=== PATIENT | female | born 1940 | race Caucasian/White ===

== ENCOUNTER → 2017-05-28 14:54 | Outpatient (CLI) | payer MEDICARE, OTHER, SELFPAY ==
[2017-05-28 16:21] LABS: Hemoglobin A1c 7.4 % (4.2-6.3)
[2017-05-28 16:27] LABS: Anion Gap 5 (5-15); BUN 55 mg/dL (7-18); Calcium,Total 9.1 mg/dL (8.5-10.1); Chloride 107 mmol/L (98-107); Creatinine, Serum 1.25 mg/dL (0.55-1.02); EST Glomerular Filtration Rate 44 mL/min (>60); Est Glom Filt Rate - Afr Amer 54 mL/min (>60); Glucose 71 mg/dL (74-106); Potassium 4.5 mmol/L (3.5-5.1); Sodium Level 141 mmol/L (136-145)
== END ==
PROVIDERS: Family Provider Family Medicine; PCP Family Medicine; Visit Provider Family Medicine
DX: I10 Essential (primary) hypertension (principal); E11.8 Type 2 diabetes mellitus with unspecified complications
CPT/HCPCS: 36415; 80048; 83036

== ENCOUNTER → 2017-11-04 09:05 | Outpatient (CLI) | payer MEDICARE, OTHER, SELFPAY ==
--- OUTSIDE RECORDS SUMMARY | 2017-11-03 16:15 | XMS RPT_ITS ---
:1940 Author Organization OHIP Care Team Providers Name Role Phone Omkar Sullivan Attending Unavailable Sullivan, Omkar Primary Care Unavailable Basali, Jessika Attending Unavailable Sullivan, Omkar Primary Care Unavailable Basali, Jessika Attending Unavailable Sullivan, Omkar Primary Care Unavailable Sullivan, Omkar Attending Unavailable Sullivan, Omkar Primary Care Unavailable Roof, Omkar Palmer Attending Unavailable Sullivan, Omkar Referring Unavailable Sullivan, Omkar Primary Care Unavailable PROBLEMS PROBLEMS DATE TYPE CONDITION / CODE ATTENDING STATUS SOURCE 06/08/2017 Unknown I10 - Essential Omkar Sullivan Active [place] (primary) [facility] hypertension / Hospital I10(ICD-10) Repository 01/01/2017 Unknown PLEURODYNIA / Jessika Calixto Active [place] R07.81(ICD-10) [facility] Repository 12/08/2016 Unknown DORSALGIA, BasaliJessika Active [facility] UNSPECIFIED / Community M54.9(ICD-10) Hospital Repository 11/19/2016 Unknown LOW BACK PAIN / Omkar Sullivan Active [place] M54.5(ICD-10) [facility] Repository PROCEDURES PROCEDURES No Procedure Records FoundRESULTS RESULTS CARDIOLOGY VISIT Observed: 10/21/2017 Status: F Source: [place] REPORT 4:20 PM [facility] RE[facility] [address] [place] [address] [phone] VISITDate of Service: 10/21/17#: [id number] Acct: [id number]: ANAMIKA BURK Rep #: [id number]: 1940 Provider: DEVIKA Palmer RoofAge/Sex: 77/F [facility] SignedHPIHPIDetails: ANAMIKA BURK, is a 77 F who presents to the office today for a cardiovascularoutpatient follow-up. She has a history of paroxysmal atrial fibrillation, diastolic mediatedcongestive heart failure, hypertension, hyperlipidemia, and untreated JAMES.Pt. denies chest, arm, jaw, or neck discomfort. Her exercise tolerance is stable with walker.Pt. denies symptoms of palpitations, lightheadedness, dizziness, near syncope, or syncopalepisodes. Pt. denies claudication issues. Pt. denies PND, fever, chills, blood in urine, bloodin stool, myalgia, or unexplainable fatigue. She states SOB on exertion that is unchanged foryears. Her lower extremity edema is unchanged. She states sleeping upright.IntakeVital Signs10/21/17 Height 5 ft 5 in10/21/17 Weight: 294 lb10/21/17 Body Mass Index (BMI) 48.908 Blood Pressure 118/ Blood Pressure Location Lt brachialIntakeVisit Reasons: 6 M FUAllergiesfurosemide [From Lasix] Allergy (Verified 10/21/17 15:42)Unknownglyburide [From Glucovance] Allergy (Verified 10/21/17 15:42)Unknownlisinopril Allergy (Verified 10/21/17 15:42)Unknownmetformin HCl [ From Glucovance] Allergy (Verified 10/21/17 15:42)UnknownMedicationsAcetaminophen [Tylenol] 500 - 1,000 mg PO TID PRN PRN 05/06/13 [History Confirmed 05/07/16] Docusate Sodium [Colace] 200 mg PO QHS 05/06/13 [History Confirmed 05/07/16]Insulin Glargine [Lantus SoloStar Pen] 35 units SC BID 05/06/13 [History Confirmed 05/07/16] Losartan Potassium [Cozaar] 100 mg PO QHS 05/06/13 [History Confirmed 05/07/16] Magnesium Oxide [Mag-Ox 400] 400 mg PO BID 05/06/13 [History Confirmed 05/07/16]Spironolactone [Aldactone] 25 mg PO QHS 05/06/13 [History Confirmed 05/07/16]Sertraline HCl [ Zoloft] 100 mg PO QHS 07/28/13 [History Confirmed 05/07/16]Budesonide/Formoterol 160/ 4.5 [Symbicort 160/4.5 Mcg Inhaler (SP)] 2 puff INHALATION BID03/05/16 [History Confirmed 05/07/16]Hydrocodone/Acetaminophen [Hydrocodone-Acetamin 7.5-325] 1 ea PO QHS 03/05/16 [HistoryConfirmed 05/07/16]Multivitamin [Multiple Vitamins] 1 ea PO DAILY 03/05/16 [History Confirmed 05/07/16]Clobetasol Propionate 1 applicatio TOPICAL PRN PRN 04/15/16 [History Confirmed 05/07/16]Ferrous Sulfate [Slow Fe] 142 mg PO DAILY 04/15/16 [History Confirmed 05/07/16]Nitroglycerin [Nitrostat] 0.4 mg SUBLINGUAL Q5M PRN #0 tab 04/17/16 [Rx Confirmed 05/07/16]Bumetanide [Bumex] 2 mg PO DAILY [History Confirmed 05/07/16]Metoprolol Tartrate [Lopressor (beta philomena)] 50 mg PO DAILY 05/07/16 [History Dbsgdvxrh28/15/17]apixaban 5 mg tablet 5 mg PO BID # 180 tab 03/05/17 [Rx]flecainide 100 mg tablet 100 mg PO Q12H 10/21/17 [History Confirmed 10/21/17]PFSHMedical HistoryParoxysmal atrial fibrillation (Chronic)Fracture of wrist (Resolved)Encounter for monitoring anti-arrhythmic therapy (Acute)Diabetes mellitus (Chronic)HTN (hypertension) (Chronic)HLD (hyperlipidemia) (Chronic)Diastolic CHF, chronic (Chronic)Atrial fibrillation (Chronic)Surgical HistoryH/O bariatric surgery (Resolved)Hx of cholecystectomy (Resolved)Family HistoryGrandmother CAD (coronary artery disease)Grandfather CAD (coronary artery disease) Social HistorySmoking Status: Never smokeralcohol intake: nevercaffeine: Yes Type: coffeeROSConstConst: Negative for fatigue, weakness, body ache, fever(s) or chillsENTENT: Negative for dizzinessCardioChest Pain: NoPalpitations: NoEdema: BilateralMuscle aches with walking: NoneRespRespiratory: Positive for SOB with activity and SOB orthopnea\SOB lying down;negative for SOB at rest or paroxysmal nocturnal dyspneaGIGI: Negative nausea, black,tarry stools, bright, red blood in stools or vomitingblood/hematemesisGUGU: Negative for hematuria or frequent nighttime urination/ nocturiaMuscMusc: Negative for muscle aches/ myalgiaSkinSkin: Negative non-healing lesions or rashNeuroNeuro: Negative for weakness, dizziness, lightheadedness, near syncope, syncope or orthostaticsymptomsEndoEndo: Negative for fatigueAllergyAllergy/Immunology: Negative for rashCardiology ExamConstAppearance: cooperative, healthy appearing, comfortable and no acute distressOrientation: alert, awake and oriented v7DafmBsjz: normal to inspectionEars: hearing grossly normal bilaterallyNose: external nose normalFace and Sinus: face symmetricMouth: oral mucosae normalEyesGeneral: appearance normal, both eyes and all related structuresEyelids: eyelids normalNeckNeck: no JVD and normal visual inspectionCarotids: normal carotid upstrokeChestChest inspection: normal inspection of the chest and normal respiratory effort;negative coughAuscultation: Bilateral: Clear to AuscultationCardioRate: regular rateRhythm: regular rhythmHeart sounds : S1 normal and S2 normal;negative rub or gallopGIGI: normal to inspectionNeuroGeneral: alert, awake, oriented x3 and CN's II-XI intact bilaterallySkinSkin: no rashes or lesions notedExtremitiesPulses: Normal: Right Posterior Tibial Pulse, Left Posterior Tibial Pulse, Right Radial Pulse,Left Radial PulseLower Extremity Edema: None: BilateralPsychPsychological: normal affectSupplemental InfoHeart catheterization from February 2016 showing ejection fraction of 65%, left main coronaryartery as angiographically normal, LAD with proximal minimal luminal irregularities, LCx/OMsystem with minimal luminal irregularities, RCA was not well visualized, but appears to be alarge dominant vessel with no obvious this angiographically significant appearing stenosis, andaortic root as angiographically normal.Echocardiogram from February 2016 showed an estimated ejection fraction of 60%, grossly normalleft ventricular size, wall motion, and systolic function, moderately enlarged left atrium,mild mitral annular calcification, trivial mitral valve insufficiency, trivial tricuspid valveinsufficiency, and RVSP of 22 mmHg.Nuclear stress test from February 2016 showed effects of shifting soft tissueattenuation/artifact although an area of myocardial ischemia involving portion of the mid todistal anterolateral/lateral apical segments cannot associate be excluded. Ejection fractionwas reported 57%.Assessment AND Plan1. Paroxysmal atrial fibrillation I48.0S/P DCCV in 04/2013;PlanPatient's heart catheterization in February 2016 showed ejection fraction of 65% and minimalcoronary artery disease. Her echocardiogram in February 2016 showed ejection fraction of 60%and moderately enlarged left atrium. She states not tolerating amiodarone therapy in the past.Patient appears to be maintaining regular rhythm. She will continue with flecainide,metoprolol, and Eliquis therapy. We will continue to monitor this.2. Diastolic CHF, chronic I50.32PlanEchocardiogram from February 2016 showed ejection fraction of 60%. Patient denies anyworsening shortness of breath or worsening lower extremity pedal edema. Her activity isminimal, but stable. She will continue with metoprolol, losartan, Bumex, and Spironolactone.We will continue to monitor this through history, exam, and repeat echocardiogram as needed.3. Essential hypertension A42VyyhBpqdcaz's blood pressure is well-controlled today in the office. We will continue to monitorthis. We will not make any medication regimen changes.4. Pure hypercholesterolemia E78.00; E78.0PlanPatient believes this is being monitored by primary care physician. She is not on anystatin/cholesterol-lowering medications.Plan DetailAdditional CommentsThank you for allowing us to participate in the patients plan of care, if you have anyquestions please do not hesitate to call.This note was generated using a voice recognition system and there may be incorrect words,spelling or punctuation that were not noted when reviewing the office note prior to saving.Follow Up14 Months (PFM)6 Months (DOOR TO DOOR SELLING DISTRIBUTOR/PA)CodingLevel of Care CodeOff vis,est,level 3DiagnosesParoxysmal atrial fibrillation I48.0Diastolic CHF, chronic I50.32Essential hypertension W09Qofvevljfbgr type: essential hypertensionPure hypercholesterolemia E78.00; E78.0Hyperlipidemia type: pure hypercholesterolemiaCodingLevel of Care CodeOff vis,est,level 3DiagnosesParoxysmal atrial fibrillation I48.0Diastolic CHF, chronic I50.32Essential hypertension C52Ieecastlzygk type: essential hypertensionPure hypercholesterolemia E78.00; E78.0Hyperlipidemia type: pure irxkjbdfgtcpdlejovwh55/01/18 1620 <Electronically signed by Omkar Morin DOOR TO DOOR SELLING DISTRIBUTOR-C>Date Omkar Morin DOOR TO DOOR SELLING DISTRIBUTOR-CCosigner Signature: Date (if applicable)CC: Omkar [facility] MD HEMOGLOBIN A1C Collected: 05/28/2017 Status: F Source: [place] 2:59 PM [facility] REPOSITORY Order Comment: Order Date: 02/03/17Order Info: 4548-4 - A1C TYPE CODE TESTS RESULT OUT OF RANGE REFERENCE UNITS LAB L501.9985 High 4.2-6.3 % HGB 7.4 A1C Performed By: #### L501.9985, L500.2500 ####[facility] [address] [place], [address] BASIC METABOLIC Collected: 05/28/2017 Status: F Source: [place] PROFILE (BMP) 2:59 PM [facility] REPOSITORY Order Comment: Order Date: 02/03/17Order Info: 0667-1 - BMP TYPE CODE TESTS RESULT OUT OF RANGE REFERENCE UNITS LAB L501.0100 Low 74-106 mg/dL GLU 71 Result Comment: Please note revised GLUCOSE reference range /02/2018. LAB L501.1000 High 7-18 mg/dL BUN 55 LAB L501.1100 High 0.55-1.02 mg/dL CREAT,SERUM 1.25 Result Comment: The validity of the calculated GFR AND GFRAA in patients over70 years has not been determined. Clinical correlation isessential. LAB L501.1110 Low >60 mL/min EST GFR 44 Result Comment: Non- GFR Calc LAB L501.1115 Low >60 mL/min EST GFR - AA 54 Result Comment: GFR Calc LAB L501.1300 High 10-20 RATIO BUN/CRE 44.0 LAB L501.2200 Normal 8.5-10.1 mg/dL CA 9.1 LAB L501.5300 Normal 136-145 mmol/L NA 141 LAB L501.5600 Normal 3.5-5.1 mmol/L K 4.5 LAB L501.5900 Normal 98-107 mmol/L CL 107 LAB L501.6100 Normal 21.0-32.0 mmol/L CO2 29.0 LAB L501.6200 Normal 5-15 GAP 5 Performed By: #### L501.9985, L500.2500 ####[facility] [address] [facility], [address] RIBS UNI MIN 3V Observed: 12/22/2016 Status: F Source: [place] W/PA CHEST 1:26 PM [facility] [address] [place], [place] [address]Vghi Uni Min 3V w/PA ChestMR#: [id number] Acct: [id number]: ANAMIKA BURK Rep #: [id number]: F 76 From: Casey Patel MDPCP: Omkar [facility] MD Status: REG CLIStudy: Ribs Uni Min 3V w/PA Chest Date of Exam: 12/22/16Exam# [id number] Ordering Dr: Jessika Calixto MDSTUDY: X-RAY - UNILATERAL RIBS ( RIGHT ) WITH CHESTREASON FOR EXAM: Female, 76 years old. Chest pain, lateral right ribpain, pt. Extremely obese, had trouble holding breath, best films possibleTECHNIQUE - RIBS: 5 view(s) of the ribs.TECHNIQUE - CHEST: Single AP portable view of the chest.COMPARISON: Chest x-ray from April 15, 2016. FINDINGS - RIBS: Normal visualized ribs without a demonstrated fracture.FINDINGS - CHEST:There are bilateral pulmonary interstitial changes and pulmonary vascularcongestion. There is no demonstrated pleural abnormality.There is mild cardiac enlargement. Normal mediastinum and jessica. Normalvisualized pulmonary arteries. There is atherosclerotic calcification ofthe aortic arch with tortuosity.There is demineralization of the osseous structures. There aredegenerative changes of the spine with compression fracture deformity ofT12, L2 There is degenerative osteoarthritis of the bilateral shoulders.There is no demonstrated abnormality of the visualized soft tissuestructures of the upper abdomen. ORDER #: [id number] RAD/Ribs Uni Min 3V w/PA ChestIMPRESSION:RIBS: Normal x-ray examination of the ribs. No fracture noted.CHEST: Cardiomegaly with pulmonary vascular congestion suggesting early CHFwithout significant change since the prior study.Osteoporosis with degenerative changes of the spine and compressionfracture deformities of T12 and P1Aujltblzvweuen Signed:Casey Patel MD, NXBK0541/12/23 at 14:21 TT [phone], Service support , KF: Jessika Calixto MD; Omkar [facility] MD Drums Teacher:Signed THORACIC SPINE 2 Observed: 11/19/2016 Status: F Source: [place] VIEWS 12:23 PM [facility] [address] [place] [place], [place] [address]Cctyqsnf Spine 2 ViewsMR#: [id number] Acct: [id number]: ANAMIKA BURK Rep #: [id number]: F 76 From: Tavares Guzmán MDPCP: Omkar Sullivan MD Status: REG CLIStudy: Thoracic Spine 2 Views Date of Exam: 11/19/16Exam# [id number] Ordering Dr: Jessika Calixto MDSTUDY: X-RAY - THORACIC SPINEREASON FOR EXAM: Female, 76 years old. Morbidly obese.TECHNIQUE: 2 view(s) of the thoracic spine were obtained.COMPARISON: Chest x-ray 11/23/2015. FINDINGS:Normal kyphosis of the thoracic spine. There is no substantial scoliosis.There is multilevel endplate spondylosis of the thoracic vertebrae. Thereis multilevel disc space narrowing of the thoracic spine. Partialcompression fractures of the thoracolumbar spine, are stable.The soft tissue structures are unremarkable. ORDER #: [id number] RAD/ Thoracic Spine 2 ViewsIMPRESSION:Degenerative changes. Stable thoracolumbar compression fractures.Electronically Signed:Tavares Guzmán MD at 16:38 EDTTel , Service support , AT: Jessika Calixto MD; Omkar [facility] MD Drums Teacher:Signed L/S SPINE MIN 4 Observed: 11/12/2016 Status: F Source: [facility] 4:41 PM [facility] REPOSITORY [facility] [address] [place], [place] [address]U/S Spine Min 4 ViewsMR#: [id number] Acct: [id number]: ANAMIKA BURK Rep #: [id number]: F 76 From: Tavares Guzmán MDPCP: Omkar [facility] MD Status: REG CLIStudy: L/S Spine Min 4 Views Date of Exam: 11/12/16Exam# [id number] Ordering Dr: Omkar Sullivan MDSTUDY: X-RAY - LUMBAR SPINEREASON FOR EXAM: Female, 76 years old. Chronic low back pain.TECHNIQUE: 5 view(s) of the lumbar spine were obtained.COMPARISON: None FINDINGS:There is severe demineralization. There are very numerous compressionfractures of moderate degree, including T12 , L1, L2, L3, L4, and L5. Theseare of indeterminate age.There is normal alignment. There is straightening. There is mild/moderatemultilevel degenerative disc disease.Calcified atherosclerotic disease seen of the aorta.IMPRESSION: Very numerous compression fractures of indeterminate age.Electronically Signed:Tavares Guzmán MD11/13 at 11:55 EDTTel , Service support , Fax ORDER #: [id number] RAD/L/S Spine Min 4 ViewsCC: Omkar [facility] MD Drums Teacher: Signed ALLERGIES ALLERGIES DATE TYPE / CODE NAME / CODE REACTION SEVERITY SOURCE 10/21/2017 Drug metformin Unknown Unknown [place] [facility] Allergy/416 HCl/[id number]( Hospital 482444(SNOM XNORM) Repository ED CT) 10/21/2017 Drug lisinopril/F0060 Unknown Unknown [place] [facility] Allergy/416 65812(RXNORM) Hospital 551739(SNOM Repository ED CT) 10/21/2017 Drug glyburide/X11982 Unknown Unknown [facility] Allergy/416 0912(RXNORM) Hospital 722033(SN Repository ED CT) 10/21/2017 Drug furosemide/F0060 Unknown Unknown [facility] Allergy/416 82482(RXNORM) Hospital 242496(SNOM Repository ED CT) 03/27/2016 Drug metformin Unknown [facility] Allergy/416 HCl/[id number]( Hospital 550539(SN XNORM) Repository ED CT) 03/27/2016 Drug lisinopril/F0060 Unknown [place] [facility] Allergy/416 68846(RXNORM) Hospital 558941(SN Repository ED CT) 03/27/2016 Drug glyburide/W52477 Unknown [place] [facility] Allergy/416 0912(RXNORM) [facility] 329643(SN Repository ED CT) 03/27/2016 Drug furosemide/F0060 Unknown [place] [facility] Allergy/416 08789(RXNORM) Hospital 576372(SNOM Repository ED CT) ENCOUNTERS ENCOUNTERS ADMIT/DISCHARGE ACCOUNT ADMITTING ENCOUNTER LOCATION SOURCE NUMBER CLASS 10/21/2017/ [id number] Ambulatory BMSBuilding:B [place] 8 2 MSTALA [facility] Repository 05/28/2017 [id number] Ambulatory [facility] [place] 1 [facility] ing:MFPLAB Repository 12/22/2016 [id number] Ambulatory [place] 3 [facility] ing:RAD Repository 11/19/2016 [id number] Ambulatory [facility] [place] 8 [facility] ing:RAD Repository 11/12/2016 [id number] Ambulatory [facility] [place] 2 [facility] ing:MTRAD Repository PAYERS PAYERS ENCOUNTER GUARANTOR PAYER SUBSCRIBER SOURCE 10/21/2017 ANAMIKA S Primary ANAMIKA S [place] [id number] Insurance:MEDICARE PIPESDOB: [facility] PART A BPolicy Number: [id number] [id number] Repository [address]Vbv: 330) Date:2017-03-10 [phone] () 10/21/2017 Secondary ANAMIKA S [place] Insurance:HUMANA PIPESDOB: [facility] [id number] Hospital Number: Repository [id number] Date:[id number] [address]EK: 10/21/2017 Tertiary NOT GIVENUNK [place] Insurance:SELF PAY [facility] Hospital Number: Effective Repository Date:2017-03-10 05/28/2017 Anamika S Primary Anamika S [place] [id number] Sr Insurance:MEDICARE PipesDOB: [address] PART A BPolicy Number: [id number] Hospital [address]Qqj: 330 [id number] Repository [phone] () Date:2017-05-28 05/28/2017 Secondary Anamika S [place] Insurance:HUMANA PipesDOB: [facility] [id number] Hospital Number: Repository [id number] Date:[id number] [address]BZ: 05/28/2017 Tertiary NOT GIVENUNK [facility] Insurance:SELF PAY [facility] Hospital Number: Effective Repository Date:2017-05-28 12/22/2016 ANAMIKA S Primary ANAMIKA S [facility] [id number] SR Insurance:MEDICARE PIPESDOB: [address] PART A BPolicy Number: [id number] Hospital [address]Yxa: [phone] [id number] Repository [phone] (HP) Date:2005-09-20 12/22/2016 Secondary ANAMIKA S [place] Insurance:HUMANA PIPESDOB: [facility] [id number] Hospital Number: Repository [id number] Date:1189-99-28ZH [address] [address]XE: 11/19/2016 ANAMIKA S Primary ANAMIKA S [place] [id number] SR Insurance:MEDICARE PIPESDOB: [address] PART A BPolicy Number: [id number] Hospital 0[address]Qht: [phone] [id number] Repository [phone] (HP) Date:2005-09-20 11/19/2016 Secondary ANAMIKA S [facility] Insurance:HUMANA PIPESDOB: [facility] [id number] Hospital Number: Repository [id number] Date:4251-99-38SA [address] [address]HG: 11/12/2016 ANAMIKA S Primary ANAMIKA S [place] [id number] SR Insurance:MEDICARE PIPESDOB: [address] PART A BPolicy Number: [id number] Hospital 15[address]Cff: ([phone] [id number] Repository [phone] () Date:2005-09-20 11/12/2016 Secondary ANAMIKA S [facility] Insurance:HUMANA PIPESDOB: [facility] [id number] Hospital Number: Repository [id number] Date:4619-02-97RE [place] [phone]:
== END ==
PROVIDERS: Family Provider Family Medicine; PCP Family Medicine; Visit Provider Family Medicine
DX: M81.0 Age-related osteoporosis without current pathological fracture (principal)
CPT/HCPCS: 36415

== ENCOUNTER → 2018-01-21 10:18 | Outpatient (CLI) | payer MEDICARE, OTHER, SELFPAY ==
[2018-01-21 12:00] LABS: Absolute Lymphocyte Count 1.95 X10^3/ul (0.83-4.51); Absolute Neutrophil Count 8.6 X10^3/uL (2.0-7.7); Basophil# 0.05 X10^3/uL; Basophil% 0.4 % (0-1); Eosinophil# 0.26 X10^3/uL; Eosinophils% 2.3 % (0-5); Hematocrit 36.9 % (37-47); Hemoglobin 10.5 g/dl (12.0-15.0); Lymphocyte # 1.95 X10^3/ul (4.0); Lymphocyte % 17.1 % (19-41); Mean Corp Hgb Conc 28.5 g/gl (32-36); Mean Corpuscular Hgb 25.2 pg (27.0-32.0); Mean Corpuscular Volume 88.5 fL (81-99); Mean Platelet Vol. 10.4 fl (6.2-12.0); Monocyte# 0.57 X10^3/uL; Neutrophil # 8.55 X10^3/uL (2.7-7.7); Neutrophil % 74.9 % (47-70); Platelet Count 340 K/mm3 (150-450); RBC Distribution Width CV 14.8 % (11.6-14.6); RBC Distribution Width SD 47.9 fl (35.1-43.9); Red Blood Count 4.17 M/mm3 (4.2-5.4); White Blood Count 11.4 K/mm3 (4.4-11.0)
[2018-01-21 12:05] LABS: POSITIVE COUNT NO; POSITIVE DIFFERENTIAL NO; POSITIVE MORPHOLOGY NO
[2018-01-21 12:13] LABS: Anion Gap 8 (5-15); BUN 64 mg/dL (7-18); BUN/Creat Ratio 53.3 RATIO (10-20); Calcium,Total 8.9 mg/dL (8.5-10.1); Chloride 110 mmol/L (98-107); Cholesterol 167 mg/dL (200); EST Glomerular Filtration Rate 46 mL/min (>60); Est Glom Filt Rate - Afr Amer 56 mL/min (>60); Glucose 82 mg/dL (74-106); High Density Lipoprotein 60 mg/dL; Potassium 4.7 mmol/L (3.5-5.1); Sodium Level 143 mmol/L (136-145); Triglycerides 113 mg/dL; Very Low Density Lipoprotein 23 mg/dL (5-40)
== END ==
PROVIDERS: Family Provider Family Medicine; PCP Family Medicine; Visit Provider Family Medicine
DX: I10 Essential (primary) hypertension (principal); E11.8 Type 2 diabetes mellitus with unspecified complications; M54.5 Low back pain
CPT/HCPCS: 36415; 80048; 80061; 83036; 85025

== ENCOUNTER → 2018-05-18 15:39 | Outpatient (CLI) | payer MEDICARE, OTHER, SELFPAY ==
[2017-10-21 15:41] VITALS: BMI 48.9
[2018-05-18 17:41] LABS: Absolute Neutrophil Count 8.6 X10^3/uL (2.0-7.7); Basophil# 0.03 X10^3/uL; Basophil% 0.3 % (0-1); Eosinophils% 1.8 % (0-5); Hematocrit 35.2 % (37-47); Lymphocyte % 14.5 % (19-41); Mean Corp Hgb Conc 28.4 g/gl (32-36); Mean Corpuscular Hgb 23.2 pg (27.0-32.0); Mean Corpuscular Volume 81.7 fL (81-99); Mean Platelet Vol. 11.1 fl (6.2-12.0); Monocyte% 5.4 % (0-10); Neutrophil # 8.57 X10^3/uL (2.7-7.7); Neutrophil % 77.6 % (47-70); POSITIVE COUNT NO; POSITIVE DIFFERENTIAL NO; POSITIVE MORPHOLOGY NO; Platelet Count 347 K/mm3 (150-450); RBC Distribution Width CV 16.7 % (11.6-14.6); RBC Distribution Width SD 49.2 fl (35.1-43.9); Red Blood Count 4.31 M/mm3 (4.2-5.4)
[2018-05-18 18:01] LABS: Anion Gap 12 (5-15); BUN 80 mg/dL (7-18); BUN/Creat Ratio 74.8 RATIO (10-20); Calcium,Total 9.2 mg/dL (8.5-10.1); Chloride 108 mmol/L (98-107); Creatinine, Serum 1.07 mg/dL (0.55-1.02); EST Glomerular Filtration Rate 53 mL/min (>60); Est Glom Filt Rate - Afr Amer 64 mL/min (>60); Ferritin 7 ng/mL (8-252); Glucose 88 mg/dL (74-106); Potassium 4.7 mmol/L (3.5-5.1); Sodium Level 144 mmol/L (136-145)
== END ==
PROVIDERS: Family Provider Family Medicine; PCP Family Medicine; Referring Provider Family Medicine; Visit Provider Family Medicine
DX: I10 Essential (primary) hypertension (principal); D64.9 Anemia, unspecified
CPT/HCPCS: 36415; 80048; 82728; 85025

== ENCOUNTER → 2018-06-23 12:24 | Outpatient (CLI) | payer MEDICARE, OTHER, SELFPAY ==
[2018-05-27 14:29] VITALS: BMI 49.2
[2018-06-23 14:36] LABS: Absolute Lymphocyte Count 1.66 X10^3/ul (0.83-4.51); Absolute Neutrophil Count 10.4 X10^3/uL (2.0-7.7); Basophil# 0.03 X10^3/uL; Basophil% 0.2 % (0-1); Eosinophil# 0.18 X10^3/uL; Eosinophils% 1.4 % (0-5); Hematocrit 36.7 % (37-47); Hemoglobin 10.4 g/dl (12.0-15.0); Lymphocyte # 1.66 X10^3/ul (4.0); Lymphocyte % 12.8 % (19-41); Mean Corp Hgb Conc 28.3 g/gl (32-36); Mean Corpuscular Hgb 23.1 pg (27.0-32.0); Mean Corpuscular Volume 81.6 fL (81-99); Mean Platelet Vol. 10.5 fl (6.2-12.0); Monocyte# 0.65 X10^3/uL; Neutrophil # 10.36 X10^3/uL (2.7-7.7); Neutrophil % 80.2 % (47-70); Platelet Count 344 K/mm3 (150-450); RBC Distribution Width SD 53.9 fl (35.1-43.9); White Blood Count 12.9 K/mm3 (4.4-11.0)
[2018-06-23 14:40] LABS: Ferritin 8 ng/mL (8-252)
[2018-06-23 14:48] LABS: POSITIVE COUNT NO; POSITIVE DIFFERENTIAL NO; POSITIVE MORPHOLOGY NO
== END ==
PROVIDERS: Family Provider Family Medicine; PCP Family Medicine; Referring Provider Family Medicine; Visit Provider Family Medicine
DX: K21.9 Gastro-esophageal reflux disease without esophagitis (principal)
CPT/HCPCS: 36415; 82728; 85025

== ENCOUNTER → 2018-09-03 10:14 | Outpatient (CLI) | payer MEDICARE, OTHER, SELFPAY ==
[2018-05-27 14:29] VITALS: BMI 49.2
[2018-09-03 12:15] LABS: Absolute Neutrophil Count 7.6 X10^3/uL (2.0-7.7); Basophil# 0.05 X10^3/uL; Basophil% 0.5 % (0-1); Eosinophil# 0.24 X10^3/uL; Eosinophils% 2.4 % (0-5); Hematocrit 36.6 % (37-47); Hemoglobin 10.6 g/dl (12.0-15.0); Lymphocyte % 15.1 % (19-41); Mean Corpuscular Hgb 24.3 pg (27.0-32.0); Mean Corpuscular Volume 83.9 fL (81-99); Mean Platelet Vol. 10.3 fl (6.2-12.0); Monocyte# 0.48 X10^3/uL; Monocyte% 4.8 % (0-10); Neutrophil # 7.64 X10^3/uL (2.7-7.7); Neutrophil % 76.9 % (47-70); Platelet Count 323 K/mm3 (150-450); RBC Distribution Width CV 17.6 % (11.6-14.6); RBC Distribution Width SD 54.5 fl (35.1-43.9); Red Blood Count 4.36 M/mm3 (4.2-5.4); White Blood Count 9.9 K/mm3 (4.4-11.0)
[2018-09-03 12:21] LABS: POSITIVE COUNT NO; POSITIVE DIFFERENTIAL NO; POSITIVE MORPHOLOGY NO
[2018-09-03 12:31] LABS: Anion Gap 7 (5-15); BUN 50 mg/dL (7-18); BUN/Creat Ratio 46.3 RATIO (10-20); Calcium,Total 9.4 mg/dL (8.5-10.1); Chloride 110 mmol/L (98-107); Creatinine, Serum 1.08 mg/dL (0.55-1.02); EST Glomerular Filtration Rate 52 mL/min (>60); Est Glom Filt Rate - Afr Amer 63 mL/min (>60); Ferritin 10 ng/mL (8-252); Glucose 111 mg/dL (74-106); Potassium 4.8 mmol/L (3.5-5.1); Sodium Level 145 mmol/L (136-145)
== END ==
PROVIDERS: Family Provider Family Medicine; PCP Family Medicine; Referring Provider Family Medicine; Visit Provider Family Medicine
DX: D50.9 Iron deficiency anemia, unspecified (principal); I10 Essential (primary) hypertension
CPT/HCPCS: 36415; 80048; 82728; 85025